=== PATIENT | male | born 1950 | race African-American/Black ===

== ENCOUNTER 2023-12-17 23:19 | Emergency (ER) | payer MEDICARE ==
[~2023-12-17 23:19] MED LIST: Iopamidol 370 76% 100 ML VIAL ONE
[2023-12-17 23:57] LABS: #Eosinphils 0.06 10x3/uL (0.0-0.5); #Monocytes 0.58 10x3/uL (0.0-1.1); #Neutrophils 4.51 10x3/uL (1.5-8.4); %Lymphocytes 17.3 % (18.0-47.0); %Monocytes 9.2 % (0.0-10.0); %Neutrophils 71.7 % (40.0-75.0); Critical Call w/ Read Back NUR.AEB @ 2355; Hematocrit 10.8 % (38.8-50.0); Hemoglobin 3.3 g/dL (13.5-17.5); Mean Corpuscular HGB CONC 30.6 g/dL (32.0-36.0); Mean Corpuscular Hemoglobin 29.7 pg (27.0-33.0); Mean Corpuscular Volume 97.3 fl (81.2-95.1); Mean Platelet Volume 9.1 fl (7.4-10.4); Platelet Count 217 10x3/uL (150-450); RBC Distribution Width 19.9 % (11.5-14.5); Red Blood Cell (RBC) Count 1.11 10x6/uL (4.32-5.72); White Blood Cell (WBC) Count 6.3 10x3/uL (3.5-10.5)
[2023-12-18 00:02] LABS: Troponin I Less than 0.010 ng/mL (< 0.028)
[2023-12-18] MEDS ORDERED: methylPREDNISolone Sod Succ/PF 125 MG/2 ML VIAL ONE (00:04)
[2023-12-18 00:10] LABS: ALT (SGPT) 14 U/L (8-55); AST (SGOT) 30 U/L (5-34); Albumin 2.8 g/dL (3.4-4.8); Alkaline Phosphatase 53 U/L (40-110); Anion Gap 16 mmol/L (10-20); BUN (Urea Nitrogen) 63 mg/dL (8.4-25.7); Bilirubin, Total 0.3 mg/dL (0.2-1.2); Calc. Creatinine Clearance 0 mL/min (70-130); Calcium 7.8 mg/dL (7.8-10.44); Carbon Dioxide 18 mmol/L (23-31); Chloride 102 mmol/L (98-107); Estimated GFR 46; Globulin 2.2 g/dL (2.4-3.5); Glucose 104 mg/dL (83-110); Lipase 58 U/L (8-78); Magnesium 2.2 mg/dL (1.6-2.6); Potassium 4.4 mmol/L (3.5-5.1); Sodium 132 mmol/L (136-145)
[2023-12-18 00:18] LABS: Reflex for Review?? YES
[2023-12-18 00:32] LABS: Actual Bicarbonate (HCO3v) 21.7 mEq/L (22-28); Analyzer IN Cardio CS ER; Base Excess -3.4 mEq/L (-2 - +2); Calcium, Ionized (venous) 1.06 mmol/L (1.16-1.32); Chloride (VBG) 100 mmol/L (98-106); Critical Notified By: CP.PH; Hematocrit-VBG 12 % (42.0-52.0); Hemoglobin (Hb) 4.2 g/dL (12.6-17.4); Potassium (VBG) 4.43 mmol/L (3.70-5.30); Puncture Site Other Site; Sodium 130 mmol/L (133-146); pH (venous) 7.363 (7.32-7.43)
[2023-12-18 00:34] LABS: INR-International Normal Ratio 1.1; PTT 25.5 sec (22.0-33.0); Prothrombin Time 11.4 sec (9.5-12.1)
[2023-12-18 00:48] LABS: Bilirubin Neg (Negative); Blood, Urine Negative (Negative); Clarity Slightly Cloudy (Clear); Glucose, Urine (Dipstick) Normal (Negative); Ketone, Urine Negative (Negative); Leukocyte 25 (Negative); Nitrite Negative (Negative); Protein, Urine (Dipstick) 15 mg/dl (Neg-Trace); Specific Gravity, Urine 1.015 (1.005-1.030); Urobilinogen Normal mg/dL (Less than 2)
[2023-12-18 00:59] LABS: Bacteria/HPF 1+ HPF (None Seen); CAUTI Indications for Culture Pelvic or flank pain; RBC/HPF None Seen HPF (0-3); Squamous Epithelial None Seen HPF (0-3); Urine Culture Reflex No No; WBC/HPF None Seen HPF (0-3)
[2023-12-18] MEDS ORDERED: Ipratropium/Albuterol 3 ML NEB ONE (01:11)
[2023-12-18] MEDS ORDERED: Acetaminophen 500 MG TAB ONE (02:22)
== END 2023-12-18 03:34 | disposition short-term general hospital (02) ==
LOC: CSHERS 23:19
DX: K92.2 Gastrointestinal hemorrhage, unspecified (principal); D63.1 Anemia in chronic kidney disease; I13.0 Hypertensive heart and chronic kidney disease with heart failure and stage 1 through stage 4 chronic kidney disease, or unspecified chronic kidney disease; E11.22 Type 2 diabetes mellitus with diabetic chronic kidney disease; N17.9 Acute kidney failure, unspecified; N18.9 Chronic kidney disease, unspecified; I50.9 Heart failure, unspecified; J44.9 Chronic obstructive pulmonary disease, unspecified; Z79.82 Long term (current) use of aspirin; Z79.899 Other long term (current) drug therapy; Z79.01 Long term (current) use of anticoagulants
CPT/HCPCS: 36430; 71045; 74177; 80053; 81001; 82805; 83605; 83690; 83735; 83880; 84484; 85025; 85610; 85730; 86850; 86900; 86901; 86920; 87040; 87086; 93005; 94640; 94760; P9016; 36415; 82274; 85060; 93010; J2930; J7620